=== PATIENT | male | born 1940 | race Caucasian/White ===

== ENCOUNTER → 2017-10-26 | Outpatient (CLI) | payer MEDICARE, BC ==
[~2017-10-26] MED LIST: CONTRAST GIVEN MC
[2017-10-26] MEDS: IOHEXOL 300 MG/ML 100ML VIAL. IV (11:51)
== END | disposition home or self-care (01) ==
LOC: CT 11:17
DX: I37.1 Nonrheumatic pulmonary valve insufficiency (principal); I35.1 Nonrheumatic aortic (valve) insufficiency; I42.9 Cardiomyopathy, unspecified; J84.9 Interstitial pulmonary disease, unspecified; R91.8 Other nonspecific abnormal finding of lung field
CPT/HCPCS: 71260; 93306; Q9967

== ENCOUNTER → 2018-09-29 | Outpatient (CLI) | payer MEDICARE, BC ==
[~2018-09-29] MED LIST changes: +AMLO1TAB14 PO; +ASPI-630 PO; -CONTRAST GIVEN MC; +FEXO1TAB31 PO; +FLUT1BLS3 IH; +METF500T16 PO; +PIOG30TA41 PO; +PRAV20TA2 PO; +PRAV40TA2 PO
--- NOTE | 2018-09-29 13:28 | RAD ---
CT CHEST WO CONTRAST Indication: Lung nodule Technique: Noncontrast CT imaging was performed of the chest, multiplanar reconstruction images submitted. One or more of the following individualized dose reduction techniques were utilized for this examination: 1. Automated exposure control 2. Adjustment of the mA and/or kV according to patient size 3. Use of iterative reconstruction technique. Comparison: October 26, 2017 Findings: There is larger noncalcified right lower lobe mass about 2.7 cm AP by 2.4 cm transverse by 2.1 cm CC versus previously about 1.8 cm AP by 1.7 cm transverse by 1.5 cm cc. There is has somewhat irregular spiculated margins. There is again contacts the right hemidiaphragm and posterior pleural surface. There is again emphysema as well as findings of interstitial lung disease, some areas of honeycombing right greater than left. Heart is enlarged. There is coronary calcification. There are calcified right hilar nodes. There is subcarinal node about 1.8 cm short axis dimension which is similar, small focus of associated calcification. There are also some other calcified mediastinal nodes. Left anterior mediastinal node about 1.1 cm short axis dimension is similar. Thoracic aortic caliber is similar. There is no pleural or pericardial effusion or pneumothorax. Kidneys are not fully included. There is a 4 cm likely cyst of left kidney and 2.1 cm probable cyst of the superior right kidney. There is multilevel thoracic degenerative disc disease. IMPRESSION: 1. There is a larger noncalcified right lower lobe mass, concerning for malignancy until proven otherwise. 2. There is emphysema and findings of interstitial lung disease. 3. There is coronary calcification. 4. There are likely cysts of the bilateral kidneys. Electronically signed by: Yakov Larsen MD (09/29/2018 1:24 PM) [id number]
== END | disposition home or self-care (01) ==
LOC: CT 09:30
PROVIDERS: ATTEND Internal Medicine Pulmonary Disease
DX: R91.8 Other nonspecific abnormal finding of lung field (principal); J43.9 Emphysema, unspecified; J84.9 Interstitial pulmonary disease, unspecified; I25.10 Atherosclerotic heart disease of native coronary artery without angina pectoris; M51.34 Other intervertebral disc degeneration, thoracic region; N28.1 Cyst of kidney, acquired
CPT/HCPCS: 71250

== ENCOUNTER 2018-10-24 06:35 | Outpatient (CLI) | payer MEDICARE, BC ==
[~2018-10-24] VITALS: Ht 170.2 cm; Wt 81.6 kg
[2018-10-24] VITALS (10 sets, daily range): BP systolic 140–191; BP diastolic 61–85
[2018-10-24] MEDS ORDERED: METF500T16 PO (07:32)
[2018-10-24] MEDS ORDERED: FLUT1BLS3 IH (07:32)
[2018-10-24] MEDS ORDERED: AMLO1TAB14 PO (07:32)
[2018-10-24] MEDS ORDERED: PIOG30TA41 PO (07:32)
[2018-10-24] MEDS ORDERED: PRAV20TA2 PO (07:32)
[2018-10-24] MEDS ORDERED: ASPI-630 PO (07:32)
[2018-10-24 07:36] LABS: BASO % 1 % (0-3); EOS # 0.6 x10^3/uL (0.0-0.7); EOS % 9 % (0-3); HEMATOCRIT 41.8 % (39.0-53.0); LYMPH # 1.2 x10^3/uL (1.0-4.8); LYMPH % 18 % (24-48); MEAN CORPUSCULAR HEMOGLOBIN 31 pg (25-35); MEAN CORPUSCULAR HGB CONC 34 g/dL (31-37); MEAN CORPUSCULAR VOLUME 91 fL (79-100); MONO # 0.8 x10^3/uL (0.0-1.1); MONO % 11 % (0-9); NEUT # 4.2 x10^3uL (1.8-7.7); NEUT % 62 % (31-73); PLATELET COUNT 191 x10^3/uL (140-400); RED BLOOD COUNT 4.59 x10^6/uL (4.30-5.70); RED CELL DISTRIBUTION WIDTH 13.5 % (11.5-14.5); WHITE BLOOD COUNT 6.8 x10^3/uL (4.0-11.0)
[2018-10-24 07:52] LABS: PROTHROMBIN TIME PATIENT 13.4 SEC (11.7-14.0)
[2018-10-24] MEDS ORDERED: LIDOCAINE WITH 8.4% SOD BICARB 3 ML DISP.SYRIN. ONE (08:27)
[2018-10-24] MEDS ORDERED: fentaNYL PF VIAL 100 MCG/2 ML VIAL ONE (08:42)
[2018-10-24] MEDS ORDERED: MIDAZOLAM HCL/PF 2 MG/2 ML VIAL. ONE (08:42)
[2018-10-24] MEDS ORDERED: MIDAZOLAM HCL/PF 2 MG/2 ML VIAL. IV ONE (09:15)
[2018-10-24] MEDS ORDERED: LIDOCAINE WITH 8.4% SOD BICARB 3 ML DISP.SYRIN. IJ ONE (09:15)
[2018-10-24] MEDS ORDERED: fentaNYL PF VIAL 100 MCG/2 ML VIAL IV ONE (09:15)
--- NOTE | 2018-10-24 10:41 | PDOC ---
MODERATE SEDATION ASSESSMENT RISKS/ALTERNATIVES Risks/Alternatives Risks and alternatives of this type of sedation and procedure discussed with: RISK/ALTERNATIVES: Patient H & P ON CHART H & P H & P on chart and reviewed for co-morbid conditions and appropriate labs. H&P ON CHART: Yes STATUS PREG STATUS ASSESSED: Yes MEDS/ALLERGIES REVIEWED Meds/Allergies Reviewed Medications and Allergies including time and route of recently administered narcotics and sedatives. MEDS/ALLERGIES REVIEWED: Yes ASA RATING ASA RATING: III AIRWAY ASSESSMENT Airway Assessment Airway patency, oral function limitations, presence of caps, crowns, dentures, partials, and ability to extend neck assessed. AIRWAY ASSESSMENT: Yes MALLAMPATI SCORE MALLAMPATI SCORE: II PRE-SEDATION ASSESSMENT PRE-SEDATION ASSESSMENT: Yes JENNY AMBRIZ MD Oct 24, 2018 10:41
--- NOTE | 2018-10-24 11:26 | NUR ---
Discharge Note: ENRIQUETA JACOBO Discharge instructions and discharge home medications reviewed with Patient and a copy given. All questions have been answered and understanding verbalized. The following instructions and handouts were given: moderate sedation and post lung biopsy care Discontinued lines and drains: Peripheral IV intact. Patient discharged to Home or Self Care withSpousevia Ambulated
--- NOTE | 2018-10-24 11:50 | RAD ---
Single view of the chest. 10/24/2018 11:00 AM Indication: POST LUNG BIOPSY
Comparison: CT chest September 21, 2018 Findings: There is no pneumothorax or pleural effusion. Low lung volumes noted. Heart size is top normal given depth of inspiration. Diffuse interstitial thickening is similar comparison studies. IMPRESSION: 1. No pneumothorax or other obvious complication following lung biopsy 2. Stable changes of chronic lung disease Electronically signed by: James Schneider MD (10/24/2018 11:48 AM) [id number]
--- NOTE | 2018-10-24 14:55 | RAD ---
CT-guided biopsy, right lower lobe pulmonary nodule 10/24/2018 Indication: Subpleural nodule, basilar right lower lobe increasing in size over time Discussion: The risks and benefits of the procedure were discussed the patient. Informed consent was obtained. A timeout procedure was performed. The right chest was prepped and draped using sterile barrier technique. 1% lidocaine was administered for local anesthesia. CT imaging redemonstrates a rounded nodule in the basilar right lower lobe at the costophrenic angle. This was targeted for biopsy. 17-gauge needle was advanced into the nodule under intermittent CT guidance. Core biopsy samples were obtained placed in formalin. Needle was removed and manual pressure held. No pneumothorax or other immediate complication was identified. Patient was transferred to the recovery unit in stable condition. The procedures performed under conscious sedation including continuous cardiopulmonary monitoring via dedicated sedation nurse. [id number] sedation time: 45 minutes. Impression: CT-guided biopsy, right lower lobe nodule PQRS Compliance Statement: One or more of the following individualized dose reduction techniques were utilized for this examination: 1. Automated exposure control 2. Adjustment of the mA and/or kV according to patient size 3. Use of iterative reconstruction technique
--- NOTE | 2018-10-25 14:07 | PATHOLOGY ---
[facility] Accession Number: [id number] . 01 Material submitted: . RIGHT LOWER LOBE LUNG MASS . 01 Clinical history: . Right lower lung lobe mass . 02 Diagnosis: Lung tissue, right lower lobe mass CT-guided needle biopsy: - SQUAMOUS CELL CARCINOMA, MODERATELY DIFFERENTIATED. SEE COMMENT. (JPM:shama; 10/25/2018) QMS/10/25/2018 . 02 Comment: Sections of the right lower lobe mass CT-guided needle biopsy show replacement of lung parenchyma by a malignant epithelial neoplasm. The malignant cells are present in irregular solid nests within a reactive desmoplastic stroma. The malignant cells have a polygonal, squamoid appearance and have eosinophilic to focally clear cytoplasm. The malignant cells possess enlarged, moderately pleomorphic hyperchromatic nuclei. Many of the tumor cell nests show evidence of keratinization. Mitotic figures are present. The morphologic findings are supportive of the diagnosis of an invasive moderately differentiated squamous cell carcinoma. The case is also examined by Dr. Phelan, who concurs with the diagnosis. The results are reported to Dr. Espana at 1:20 PM on 10/25/18. (JPM:shama; 10/25/2018) . 02 Electronically signed: . Patrick Acosta MD, Pathologist NPI- [id number] . 01 Gross description: . Received in formalin labeled "Jennifer Lord, right lower lobe mass," are 4 distinct needle cores of salazar soft tissue ranging from 0.3 to 0.6 cm in length and measuring less than 0.1 cm each in diameter. The specimen is submitted entirely in cassette A1 through A3. (TSD; 10/24/2018) TOB/TOB . 02 Pathologist provided ICD-10: C34.31 . 02 CPT . 255727 Specimen Comment: A courtesy copy of this report has been sent to Specimen Comment: [phone], , . Specimen Comment: Report sent to ,DR ESPANA / DR KIM Specimen Comment: A duplicate report has been generated due to demographic updates. Performed at: 01 [facility] [address] [facility] [address], [place] [id number] MD Ovidio Prado MD Phone: [phone] Performed at: 02 [facility] [place] [address], [place] [id number] MD Patrick Acosta MD Phone: [phone]
[2018-11-08] MEDS ORDERED: PRAV40TA2 PO (17:05)
[2018-11-08] MEDS ORDERED: FEXO1TAB31 PO (17:05)
== END 2018-10-24 11:29 | disposition home or self-care (01) ==
LOC: INTRAD 06:35
PROVIDERS: ATTEND Internal Medicine Pulmonary Disease
DX: C34.31 Malignant neoplasm of lower lobe, right bronchus or lung (principal); Z79.01 Long term (current) use of anticoagulants; Z79.899 Other long term (current) drug therapy
CPT/HCPCS: 32405; 36415; 71045; 77012; 85025; 85610; 85730; 99152; 99153; J2250; J3010; 88305

== ENCOUNTER → 2018-11-10 | Outpatient (CLI) | payer MEDICARE, BC ==
[2018-10-24 10:15] VITALS: BP 157/65
--- NOTE | 2018-11-10 15:55 | RAD ---
Examination: PET CT skull base to proximal thigh History: Right lower lobe squamous cell carcinoma Comparison/Correlation: CT chest without contrast 09/29/2018 Findings: PET/CT exam was performed from skull base to the proximal thighs. 15.67 mCi F-18 FDG was injected. Serum blood glucose at the time of injection was 146 mg/dL. Uptake of radiotracer involving the head and neck is unremarkable. Right lateral costophrenic angle mass lesion has SUV max of 11.3. Right lower paratracheal lymph node has mild uptake with SUV max of 3.5. It is identified and measure up to 1.6 cm x 1.6 cm and has minimal calcification. This may represent old granulomatous disease. Other nonenlarged lymph nodes are present. There are calcified lymph nodes present. Coronary artery calcifications are notable. Interstitial fibrotic findings of the lung weldon noted. Small hiatal hernia is present. Mild cardiomegaly. No abnormal uptake of radiotracer involving the abdomen or pelvis. Renal cysts are present. There are 2 nonobstructive right renal lower pole calyceal calculi. 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 Diverticulosis of the colon noted. Urinary bladder is unremarkable. No enlarged abdominal or pelvic lymph nodes. Degenerative changes of the spine consistent with patient's age noted. Impression: Right lateral costophrenic angle mass with intense uptake corresponding to the patient's known squamous cell carcinoma. No evidence of lymphadenopathy or metastases.
== END | disposition home or self-care (01) ==
LOC: PETSC 10:22
PROVIDERS: ATTEND Radiology Radiation Oncology
DX: C34.31 Malignant neoplasm of lower lobe, right bronchus or lung (principal); C38.3 Malignant neoplasm of mediastinum, part unspecified; N28.1 Cyst of kidney, acquired; N20.0 Calculus of kidney; I72.2 Aneurysm of renal artery; J84.10 Pulmonary fibrosis, unspecified; K57.30 Diverticulosis of large intestine without perforation or abscess without bleeding; K44.9 Diaphragmatic hernia without obstruction or gangrene; I51.7 Cardiomegaly; I25.10 Atherosclerotic heart disease of native coronary artery without angina pectoris
CPT/HCPCS: 78815; A9552

== ENCOUNTER → 2019-02-09 | Outpatient (CLI) | payer MEDICARE, BC ==
[2018-10-24 10:15] VITALS: BP 157/65
--- NOTE | 2019-02-09 09:05 | RAD ---
Examination: CT CHEST WO CONTRAST History: Lung cancer with history of treatment Comparison/Correlation: 11/10/2018 PET/CT exam, 09/21/2018 CT chest without contrast Findings: Axial images of chest were obtained without contrast. Sagittal and coronal reformatted images were provided. Right hilar calcified lymph nodes present. Coronary arterial calcification is present diffusely. Right posterolateral costophrenic sulcus mass with Hounsfield units of 16 measuring 1.8 cm x 2.5 cm and this represents a decrease compared to previous PET/CT exam of 11/10/2018 at which measurements of 2.8 cm x 2.1 cm is identified. The mass is lower in density in the interval. Superior mediastinal lymph nodes again identified measuring up to 2.1 cm in maximum dimension. Short axis diameters of up to 1 cm noted. These are similar to prior exam. Nonenlarged right paratracheal lymph nodes are present. Precarinal calcified lymph nodes are evident. Subcarinal lymph node with minimal calcification within it is also seen. Extensive fibrotic findings of the lung weldon noted with honeycombing in the subpleural basilar aspect. No new infiltrates. No suspicious pulmonary nodules or masses in the interval. Superior pole renal cysts are present. These are only partially included for purposes of this exam. Small hiatal hernia is present. Visualized bony structures are unremarkable for patient's age. Impression: Decreased size in the patient's known posterior lateral basilar costophrenic sulcus mass. No significant change in mediastinal lymph nodes. Small hiatal hernia. Fibrotic findings of lung weldon compatible with idiopathic pulmonary fibrosis. No significant change. PQRS Compliance Statement: One or more of the following individualized dose reduction techniques were utilized for this examination: 1. Automated exposure control 2. Adjustment of the mA and/or kV according to patient size 3. Use of iterative reconstruction technique Electronically signed by: Peter Santos MD (02/09/2019 9:02 AM) [facility]
== END | disposition home or self-care (01) ==
LOC: CT 08:19
PROVIDERS: ATTEND Radiology Radiation Oncology
DX: C34.90 Malignant neoplasm of unspecified part of unspecified bronchus or lung (principal); R91.8 Other nonspecific abnormal finding of lung field; J84.112 Idiopathic pulmonary fibrosis; I25.10 Atherosclerotic heart disease of native coronary artery without angina pectoris; N28.1 Cyst of kidney, acquired; K44.9 Diaphragmatic hernia without obstruction or gangrene
CPT/HCPCS: 71250

== ENCOUNTER → 2019-08-15 | Outpatient (CLI) | payer MEDICARE, BC ==
[2018-10-24 10:15] VITALS: BP 157/65
--- NOTE | 2019-08-15 12:28 | RAD ---
PQRS Compliance Statement: One or more of the following individualized dose reduction techniques were utilized for this examination: 1. Automated exposure control 2. Adjustment of the mA and/or kV according to patient size 3. Use of iterative reconstruction technique CT CHEST WO CONTRAST 08/15/2019 10:30 AM Indication: Lung cancer status post treatment with 6 month follow-up. COMPARISON: CT chest 02/09/2019, PET/CT 11/10/2018 TECHNIQUE: Multiple axial CT images of the chest were obtained without intravenous contrast. Coronal and sagittal reformats are provided. FINDINGS: Subpleural interstitial changes are identified with lower lung zone predominance. Honeycombing is identified. There is traction bronchiectasis at the lung bases. Minimal wedge-shaped consolidative change at the lateral right lung base appears similar. There is increased groundglass changes noted in the left upper lobe and left lower lobe compared to prior examination. Stable mass at the right costophrenic angle measuring 2.5 x 1.8 cm. Thyroid gland is normal in appearance. Right paratracheal lymph node measures 14 mm by short axis, stable. Para-aortic lymph node in the anterior mediastinum measures 1.3 cm by short axis, previously 1.2 cm (series 3, image 20). Calcified right hilar lymph node is present. Evaluation of the right hilum is limited by lack of intravenous contrast. Subcarinal lymph node with punctate calcification measures 17 mm by short axis, previously measuring similar. Nonobstructing calculus in the interpolar right kidney measures 5 mm. Posterior superior pole left renal cyst measures 3.18. No suspicious osseous normality is identified. IMPRESSION: 1. Stable soft tissue mass in the right lower lobe lateral basal segment within the costophrenic angle measuring 2.5 x 1.8 cm. Similar mediastinal lymphadenopathy, as described in detail above. 2. Increase in groundglass airspace disease in the left upper and lower lobes which may represent an infectious/inflammatory pneumonitis. 3 month follow-up chest CT is recommended to ensure resolution. 3. Similar findings of usual interstitial pneumonia interstitial lung disease. Electronically signed by: Marycruz Silva MD (08/15/2019 12:25 PM) [place] [id number]
== END | disposition home or self-care (01) ==
LOC: CT 09:48
PROVIDERS: ATTEND Radiology Radiation Oncology
DX: C34.31 Malignant neoplasm of lower lobe, right bronchus or lung (principal); J84.112 Idiopathic pulmonary fibrosis; J84.89 Other specified interstitial pulmonary diseases; I89.8 Other specified noninfective disorders of lymphatic vessels and lymph nodes; N28.1 Cyst of kidney, acquired
CPT/HCPCS: 71250